=== PATIENT | female | born 1980 | race Caucasian/White ===

== ENCOUNTER 2017-03-27 15:22 | Emergency (ER) | payer MEDICAID, OTHER ==
[2017-03-27] MEDS ORDERED: HYDROXYZINE PAMOATE 50 MG CAPSULE PO ONE (16:04)
--- NOTE | 2017-03-27 16:11 | ER Document Report ---
ED General - General Chief Complaint: Hyperventilation Stated Complaint: DIFFICULTY BREATHING Time Seen by Provider: 03/27/17 15:44 Notes: Patient says she awakened this morning and felt a knot in the left anterior neck. It was painful to swallow and she was having difficulty swallowing even water. Later in the morning, she had to take her daughter to school. Then she went by her psychiatrist office and got a prescription for a new antidepressant medication. She also takes Valium 5 mg as needed for anxiety. Suffers from panic attacks. About 1:45 PM this afternoon, patient was driving to work when she began to feel her chest tightening and that she was having a hard time breathing. She stopped at a local fire and rescue department where they gave her 1 of her own Valium to take. EMS was called and they transported the patient here. They were concerned that she had wheezing in her chest and gave her 125 mg of Solu-Medrol IV. When she arrived here, patient is complaining of tightening in her chest and intermittent difficulty breathing. Patient also complains of having episodes of her heart rate increasing. She underwent cardiac ablation therapy in December 2000 which was successful for a few years, but now she is beginning to have episodes of tachycardia again. Patient says that she suffers chronically from dry mouth and dry throat, but was told by her doctor it was due to acid reflux. TRAVEL OUTSIDE OF THE [place] IN LAST 30 DAYS: No - Related Data Allergies/Adverse Reactions: aspirin [Aspirin] Allergy (Severe, Verified 11/15/14 08:38) ? apples Allergy (Severe, Uncoded 11/15/14 08:38) Generalized Itching Past Medical History - Social History Smoking Status: Unknown if Ever Smoked Family History: Reviewed & Not Pertinent - Past Medical History Cardiac Medical History: Denies: Hx Coronary Artery Disease, Hx Heart Attack, Hx Hypertension Pulmonary Medical History: Denies: Hx Asthma, Hx Bronchitis, Hx COPD, Hx Pneumonia Neurological Medical History: Reports: Hx Migraine. Denies: Hx Cerebrovascular Accident, Hx Seizures GI Medical History: Reports: Hx Gastroesophageal Reflux Disease Musculoskeltal Medical History: Denies Hx Arthritis Psychiatric Medical History: Reports: Hx Anxiety, Hx Depression, Other - Panic attacks Past Surgical History: Reports: Hx Cardiac Catheterization, Hx Cardiac Surgery - Accessory pathway ablation, Hx Cholecystectomy, Hx Tubal Ligation - Immunizations Immunizations up to date: Yes Hx Diphtheria, Pertussis, Tetanus Vaccination: Yes Review of Systems - Review of Systems Notes: REVIEW OF SYSTEMS: CONSTITUTIONAL : Denies fever. EENT: Denies eye, ear, nose or mouth or throat pain or other symptoms. See HPI regarding "knot" in left neck. CARDIOVASCULAR: See HPI. RESPIRATORY: Denies cough, chest congestion, but does feel difficulty breathing and shortness of breath. GASTROINTESTINAL: Denies abdominal pain or nausea, vomiting, or diarrhea. GENITOURINARY: Denies difficulty or painful urinating, urinary frequency, blood in urine. MUSCULOSKELETAL: Denies back or neck pain. Denies joint pain or swelling. SKIN: Denies rash or skin lesions. NEUROLOGICAL: Denies LOC or altered mental status. Denies headache. Denies sensory loss or motor deficits. Psych: Has anxiety and panic attacks and depression. ALL OTHER SYSTEMS REVIEWED AND NEGATIVE. Physical Exam - Vital signs Vitals: Resp 32 H 03/27/17 15:23 Interpretation: Tachycardic - Heart rates about 105 to 110, but varies somewhat above and below that rate. - Notes Notes: PHYSICAL EXAMINATION: GENERAL: Rather hysterical and tearful and complaining of her chest hurting and also difficulty breathing. Voice is normal. HEAD: Atraumatic, normocephalic. EYES: Pupils equal round and reactive to light, extraocular movements intact. ENT: oropharynx clear without exudates. Moist mucous membranes. No swelling anywhere in the oropharynx. NECK: Normal range of motion, supple. Palpation of the neck does reveal what feels like about a 1 cm tender likely lymph node about the mid left sternocleidomastoid muscle. It is tender to my touch. Definitely no fluctuance. No abscess. LUNGS: Breath sounds clear and equal bilaterally. HEART: Regular rate and rhythm without murmurs. ABDOMEN: Soft, nontender. No guarding or rebound. BACK: No tenderness throughout entire back. EXTREMITIES: Normal range of motion without pain. Negative Homans bilaterally. NEUROLOGICAL: Normal speech, normal gait. Normal sensory, motor, and reflex exams. Awake, alert, and oriented x3. Cranial nerves normal. PSYCH: Normal mood, normal affect. SKIN: Warm, dry, no rashes. Course - Vital Signs Vital signs: Temp Pulse Resp BP Pulse Ox 11 L 121/74 98 03/27/17 19:01 03/27/17 19:01 03/27/17 19:01 - Laboratory Result Diagrams: 03/27/17 15:30 03/27/17 15:30 Laboratory results interpreted by me: 03/27/17 15:30 Carbon Dioxide 17 L Discharge - Discharge Clinical Impression: Panic attack, Sinus tachycardia Disposition: HOME, SELF-CARE Additional Instructions: Panic Attack The cause of panic attacks is unknown. Symptoms can include chest pain, shortness of breath, palpitations, sweats, and a sense of smothering or impending doom. In time, the panic attacks can lead to generalized anxiety and phobias. Because the symptoms can mimic heart attack, pulmonary embolism, and other serious diseases, the physician has evaluated you for these conditions. There is no evidence of a serious problem. An acute panic attack usually goes away by itself without treatment. A severe attack can be treated with medicine to calm you. Long-term, antidepressant medicines may help prevent attacks. Counselling can also be very beneficial in dealing with panic attacks. Panic attacks are less likely if you are getting regular exercise, proper diet, and plenty of sleep. It's normal for panic attacks to cause many frightening symptoms. However, you should call or return if your symptoms change significantly or if you are worsening. Anxiety The physician feels that some of your health problems are being caused by anxiety. Anxiety affects your health in many ways. Anxiety alone can cause palpitations, sweats, chest pains, abdominal pains, shortness of breath, and headaches. It contributes to ulcer disease, high blood pressure, irritable bowel syndrome, and has been shown to cause flare-ups of many other diseases. Anxiety is not a simple disorder to treat. If the anxiety is due to recent life stresses, you may simply need time to "work through" the changes. If the anxiety is due to an underlying unhappiness with yourself or due to psychiatric disturbance, professional help will be needed. Your physician can refer you for further help if needed. Anti-anxiety medication is occasionally given if the stress is acute or if you are having trouble sleeping. Chronic or frequent use of these medications is not a good idea because the body becomes reliant on it, preventing you from dealing with life's normal stresses. Sinus Tachycardia The palpitations (racing heart) you have felt are due to "sinus tachycardia." This is a rapid (but NORMAL) rhythm which can be due to fever, pain, anxiety, lack of sleep, over-exertion, or drugs. Cold medications, caffeine, and diet pills are particularly likely to cause tachycardia. The doctor has found no evidence of heart disease. Occasionally, medication is required for uncomfortable palpitations. Usually, however, all that is required is rest, reassurance, and avoiding caffeine, alcohol, nicotine , and unnecessary medicines. Call the doctor if you develop any new or unusual symptoms, or if the rapid heartbeat does not resolve. NORMAL EXAM AND WORKUP: At this time, except for your somewhat elevated heart rate, your examination and workup show no significant abnormality. No significant abnormal physical findings were noted. All laboratory, EKG, and imaging (x-ray , CT scans, ultrasound) studies that were ordered show no significant abnormality. Although your examination and all studies that were ordered showed no significant abnormal finding, there are no examinations and no studies that are 100% accurate. There is always the possibility that some abnormality could exist and not be detected with physical examination or within the limits and capabilities of laboratory and other studies. You should return or follow up as you were instructed on your visit today for further evaluation if your symptoms do not resolve. Valium is a benzodiazepines You have been given a benzodiazepine medication. Examples of this type of medicine include Valium, Xanax, Librium, Ativan, and Halcion. Benzodiazepines have many uses. Medications of this type are used for insomnia, anxiety, muscle spasms, seizures, and drug and alcohol withdrawal. You may become very drowsy when you first take the medication. You should not drive or operate machinery while under its effects. Do not combine the medication with alcohol, or with any other medication without talking to your doctor. Do not take if without specific instruction from your gyn. Some benzodiazepines may have harmful interactions with oral antifungal medicines such as ketoconazole, itraconazole, and nefazodone. If you are taking an antifungal medicine, discuss this with your doctor before taking benzodiazepines. FOLLOW-UP CARE: If you have been referred to a physician for follow-up care, call the physician s office for an appointment as you were instructed or within the next two days. If you experience worsening or a significant change in your symptoms, notify the physician immediately or return to the Emergency Department at any time for re-evaluation. Follow-up with your primary care provider and begin the process of getting back involved with a financial aid officer to assess your heart condition and rapid heartbeat. Forms: Return to Work
[2017-03-27 16:30] LABS: ABSOLUTE LYMPHOCYTES (AUTO) 2.2 10^3/uL (0.5-4.7); ABSOLUTE MONOCYTES (AUTO) 0.5 10^3/uL (0.1-1.4); ABSOLUTE NEUT (AUTO) 3.5 10^3/uL (1.7-8.2); BASOPHILS % (AUTO) 0.4 % (0-2); EOSINOPHILS % (AUTO) 0.8 % (0-6); HEMOGLOBIN 12.9 g/dL (12.0-15.5); HGB HCT DIFFERENCE 0.7; LYMPHOCYTES % (AUTO) 34.9 % (13-45); MEAN CORPUSCULAR HEMOGLOBIN 31.7 pg (27.0-33.4); MEAN CORPUSCULAR VOLUME 93 fl (80-97); MONOCYTES % (AUTO) 8.5 % (3-13); RED BLOOD COUNT 4.07 10^6/uL (3.72-5.28); RED CELL DISTRIBUTION WIDTH 13.4 % (11.5-14.0); SEGMENTED NEUTROPHILS % (AUTO) 55.4 % (42-78); WHITE BLOOD COUNT 6.4 10^3/uL (4.0-10.5)
[2017-03-27 16:36] LABS: ALANINE AMINOTRANSFERASE 20 U/L (9-52); ALBUMIN 4.3 g/dL (3.5-5.0); ALKALINE PHOSPHATASE 56 U/L (38-126); ANION GAP 19 (5-19); ASPARTATE AMINO TRANSFERASE 30 U/L (14-36); BILIRUBIN,DIRECT 0.3 mg/dL (0.0-0.4); BILIRUBIN,TOTAL 0.4 mg/dL (0.2-1.3); BLOOD UREA NITROGEN 8 mg/dL (7-20); CARBON DIOXIDE 17 mmol/L (22-30); CHLORIDE 107 mmol/L (98-107); CREATININE RESULT 0.71 mg/dL (0.52-1.25); GLUCOSE 104 mg/dL (75-110); POTASSIUM 3.7 mmol/L (3.6-5.0); SODIUM 143.1 mmol/L (137-145); TOTAL PROTEIN 7.4 g/dL (6.3-8.2)
[2017-03-27 16:48] LABS: CREATINE KINASE MB 0.43 ng/mL (<4.55)
[2017-03-27 16:49] LABS: TROPONIN I < 0.012 ng/mL
[2017-03-27 17:07] LABS: THYROID STIMULATING HORMONE 2.94 uIU/mL (0.47-4.68)
--- NOTE | 2017-03-27 18:48 | EKG REPORT ---
SEVERITY:- ABNORMAL ECG - SINUS TACHYCARDIA NONSPECIFIC T ABNORMALITIES, INFERIOR LEADS : Confirmed by: Edin Bonner MD 27-Mar-2017 18:46:46
[2017-03-27 19:01] LABS: APPEARANCE,URINE CLEAR; BILIRUBIN,URINE NEGATIVE (NEGATIVE); GLUCOSE, URINE NEGATIVE (NEGATIVE); KETONES,URINE NEGATIVE (NEGATIVE); LEUKOCYTE ESTERASE,URINE NEGATIVE (NEGATIVE); NITRITE,URINE NEGATIVE (NEGATIVE); PROTEIN,URINE NEGATIVE (NEGATIVE); URINE SPECIFIC GRAVITY 1.002; UROBILINOGEN,URINE NEGATIVE mg/dL (<2.0)
[2017-03-27 19:13] LABS: URINE BARBITURATES SCREEN NEGATIVE; URINE METHADONE SCREEN NEGATIVE; URINE OPIATES LOW NEGATIVE; URINE PHENCYCLIDINE SCREEN NEGATIVE
[2017-03-27 19:15] VITALS: BP 121/74
== END 2017-03-27 19:40 | disposition home or self-care (01) ==
LOC: ER 15:22
DX: F41.0 Panic disorder [episodic paroxysmal anxiety] (principal); R00.0 Tachycardia, unspecified; R06.4 Hyperventilation; R06.02 Shortness of breath; Z79.899 Other long term (current) drug therapy
CPT/HCPCS: 93005; 99285; 36415; 87070; 84439; 82553; 87880; 84443; 84703; 85025; 80053; 81001; 84484; 80307; 85379; 93010; J3490

== ENCOUNTER 2018-06-08 00:59 | Emergency (ER) | payer MEDICAID, OTHER ==
[2018-06-08] MEDS ORDERED: ASPIRIN 81 MG TABLET, CHEWABLE PO ONE (01:11)
[2018-06-08] MEDS ORDERED: ONDANSETRON HCL INJ/PF 4 MG/2 ML SDV IV ONE ×2 (01:27→04:24)
[2018-06-08] MEDS ORDERED: NORMAL SALINE 1000 ML 1,000 ML IV ONE (01:27)
[2018-06-08] MEDS ORDERED: ACETAMINOPHEN 325 MG TABLET PO ONE (01:27)
[2018-06-08 01:30] LABS: ABSOLUTE BASOPHILS # (AUTO) 0.1 10^3/uL (0.0-0.2); ABSOLUTE MONOCYTES (AUTO) 0.6 10^3/uL (0.1-1.4); ABSOLUTE NEUT (AUTO) 7.6 10^3/uL (1.7-8.2); BASOPHILS % (AUTO) 0.8 % (0-2); EOSINOPHILS % (AUTO) 0.2 % (0-6); HEMATOCRIT 36.6 % (36.0-47.0); HEMOGLOBIN 12.8 g/dL (12.0-15.5); LYMPHOCYTES % (AUTO) 19.5 % (13-45); MEAN CORPUSCULAR HEMOGLOBIN 31.6 pg (27.0-33.4); MEAN CORPUSCULAR VOLUME 90 fl (80-97); PLATELET COUNT 353 10^3/uL (150-450); RED BLOOD COUNT 4.05 10^6/uL (3.72-5.28); RED CELL DISTRIBUTION WIDTH 13.6 % (11.5-14.0); SEGMENTED NEUTROPHILS % (AUTO) 73.5 % (42-78); TOTAL CELLS COUNTED % (AUTO) 100 %; WHITE BLOOD COUNT 10.4 10^3/uL (4.0-10.5)
--- NOTE | 2018-06-08 01:38 | ER Document Report ---
ED General - General Mode of Arrival: Ambulatory Information source: Patient TRAVEL OUTSIDE OF THE [place] IN LAST 30 DAYS: No <STEVEN JIMENEZ - Last Filed: 06/08/18 02:51> <HALLIE VERDE - Last Filed: 06/08/18 04:55> - General Chief Complaint: Palpitations Stated Complaint: HEADACHE,LEFT ARM PAIN Time Seen by Provider: 06/08/18 01:09 Notes: Patient is a 37 year old female with a history of a cardiac ablation(2000), gastroparesis, migraines, anxiety presents to the emergency department complaining of heart palpations onset yesterday. Patient states she began to have heart palpitations while laying down yesterday evening. She states she used a pulse ox and recorded a heart rate of 150 bpm. She states she also developed a headache, nausea, left sided chest pain, a temperature of 100.1 and left arm pain. Patient states "I just don't feel right" and further mentions having similar symptoms in 2000 which led to an ablation. Patient states she does not intake caffeine regularly but had some yesterday. She mentions having episodes of diarrhea this week. She denies any cough or shortness of breath. Patient mentions a family history of thyroid problems and malignancy. (STEVEN JIMENEZ) - Related Data Allergies/Adverse Reactions: aspirin [Aspirin] Allergy (Severe, Verified 06/08/18 01:05) ? apples Allergy (Severe, Uncoded 06/08/18 01:05) Generalized Itching Past Medical History - General Information source: Patient - Social History Smoking Status: Former Smoker Frequency of alcohol use: None Drug Abuse: None Family History: Malignancy, Thyroid Disfunction Patient has suicidal ideation: No Patient has homicidal ideation: No Neurological Medical History: Reports: Hx Migraine GI Medical History: Reports: Hx Gastroesophageal Reflux Disease Psychiatric Medical History: Reports: Hx Anxiety, Hx Depression Past Surgical History: Reports: Hx Cardiac Catheterization, Hx Cardiac Surgery - Accessory pathway ablation, Hx Cholecystectomy, Hx Tubal Ligation - Immunizations Immunizations up to date: Yes Hx Diphtheria, Pertussis, Tetanus Vaccination: Yes <STEVEN JIMENEZ - Last Filed: 06/08/18 02:51> Review of Systems - Review of Systems Constitutional: See HPI, Fever EENT: No symptoms reported Cardiovascular: See HPI, Chest pain, Palpitations Respiratory: No symptoms reported Gastrointestinal: See HPI, Nausea Genitourinary: No symptoms reported Female Genitourinary: No symptoms reported Musculoskeletal: See HPI Skin: No symptoms reported Hematologic/Lymphatic: No symptoms reported Neurological/Psychological: See HPI, Headaches <STEVEN JIMENEZ - Last Filed: 06/08/18 02:51> Physical Exam <STEVEN JIMENEZ - Last Filed: 06/08/18 02:51> <HALLIE VERDE - Last Filed: 06/08/18 04:55> - Vital signs Vitals: Temp Pulse Resp BP Pulse Ox 98.1 F 108 H 20 127/77 H 96 06/08/18 01:03 06/08/18 01:03 06/08/18 01:03 06/08/18 01:03 06/08/18 01:03 - Notes Notes: GENERAL: Alert, interacts well. No acute distress. HEAD: Normocephalic, atraumatic. EYES: Pupils equal, round, and reactive to light. Extraocular movements intact. ENT: Oral mucosa moist, tongue midline. NECK: Full range of motion. Supple. Trachea midline. LUNGS: Clear to auscultation bilaterally, no wheezes, rales, or rhonchi. No respiratory distress. HEART: Regular rate and rhythm. No murmurs, gallops, or rubs. ABDOMEN: Soft, non-tender. Non-distended. Bowel sounds present in all 4 quadrants. EXTREMITIES: Moves all 4 extremities spontaneously. No edema, radial and dorsalis pedis pulses 2/4 bilaterally. No cyanosis. NEUROLOGICAL: Alert and oriented x3. Normal speech. . PSYCH: Somewhat anxious. SKIN: Warm, normal turgor. Mildly diaphoretic on the upper lip. No rashes or lesions noted. (STEVEN JIMENEZ) Course - Laboratory Result Diagrams: 06/08/18 01:15 06/08/18 01:15 <STEVEN JIMENEZ - Last Filed: 06/08/18 02:51> - Laboratory Result Diagrams: 06/08/18 01:15 06/08/18 01:15 <HALLIE VERDE - Last Filed: 06/08/18 04:55> - Re-evaluation Re-evalutation: 06/08/18 04:25 CBC unremarkable, CMP grossly unremarkable, cardiac enzymes negative x2, lipase normal, TSH, T3 and T4 all normal, hCG negative, alcohol level is less than 10, chest x-ray shows no acute process. Patient has not had a recurrence of significant tachycardia while in the emergency department. 06/08/18 04:26 06/08/18 04:35 Declines GI cocktail, agreeable to discharge as I see no indication of infection or heart attack. Will follow up with Dr. Cervantes on Saturday for Holter monitor. (HALLIE VERDE) - Vital Signs Vital signs: Temp Pulse Resp BP Pulse Ox 98 F 95 17 104/73 99 06/08/18 04:09 06/08/18 04:09 06/08/18 04:09 06/08/18 04:09 06/08/18 04:09 - Laboratory Laboratory results interpreted by me: 06/08/18 01:15 Chloride 109 H Glucose 113 H - EKG Interpretation by Me Additional EKG results interpreted by me: 06/08/18 04:27 Initial EKG at 110 shows sinus tachycardia at a rate of 101, normal axis, normal intervals, no ST segment elevations or depressions, there are T wave inversions noted in lead III, aVF, V3 and 4, T wave flattening in V5 and V6, although this is unchanged from prior EKG on 03/27/2017 per my interpretation. Repeat EKG at 3:42 AM shows sinus rhythm at a rate of 76, normal axis, normal intervals, no ST segment elevations or depressions, unchanged T wave inversions in lead III, aVF, V3 and V4, T waves have normalized in V5 and V6 per my interpretation. (HALLIE VERDE) Discharge <STEVEN JIMENEZ - Last Filed: 06/08/18 02:51> <HALLIE VERDE - Last Filed: 06/08/18 04:55> - Discharge Clinical Impression: Palpitation, Chest pain with low risk of acute coronary syndrome Condition: Stable Disposition: HOME, SELF-CARE Additional Instructions: Today your workup did not show any signs of hyper or hypothyroidism, heart attack or electrolyte abnormality. These are all good things. It is very important that you follow-up with a mold loft worker as an outpatient. Please make sure that you call Dr. Cervantes's office first thing Saturday morning. He will get you in for an appointment to have a Holter monitor to track your palpitations. It is possible that she may end up needing another ablation. Please return to the emergency department at any time should your rapid heartbeat return or should your chest pain worsen. Forms: Return to Work Referrals: CEDRIC CERVANTES MD [ACTIVE STAFF] - Follow up as needed Scribe Attestation: 06/08/18 04:55 I personally performed the services described in the documentation, reviewed and edited the documentation which was dictated to the scribe in my presence, and it accurately records my words and actions. (HALLIE VERDE) Scribe Documentation - Scribe Written by Scribe:: Robert Mello, 06/08/2018 01:48 acting as scribe for :: Dylan <STEVEN JIMENEZ - Last Filed: 06/08/18 02:51>
[2018-06-08 01:42] LABS: ALANINE AMINOTRANSFERASE 14 U/L (9-52); ALBUMIN 4.3 g/dL (3.5-5.0); ALKALINE PHOSPHATASE 56 U/L (38-126); ANION GAP 13 (5-19); ASPARTATE AMINO TRANSFERASE 30 U/L (14-36); BILIRUBIN,DIRECT 0.2 mg/dL (0.0-0.4); BILIRUBIN,TOTAL 0.2 mg/dL (0.2-1.3); BLOOD UREA NITROGEN 9 mg/dL (7-20); CALCIUM 9.4 mg/dL (8.4-10.2); CARBON DIOXIDE 23 mmol/L (22-30); CHLORIDE 109 mmol/L (98-107); CREATINE KINASE 59 U/L (30-135); GLUCOSE 113 mg/dL (75-110); POTASSIUM 4.2 mmol/L (3.6-5.0); TOTAL PROTEIN 7.5 g/dL (6.3-8.2)
[2018-06-08 01:54] LABS: CREATINE KINASE MB 0.37 ng/mL (<4.55); TROPONIN I < 0.012 ng/mL
--- NOTE | 2018-06-08 02:08 | RADIOLOGY REPORT (SQ) ---
EXAM DESCRIPTION: XR CHEST 1 VIEW COMPLETED DATE/TME: 06/08/2018 01:11 CLINICAL HISTORY: 37 years, Female, palpitations COMPARISON: [id number] chest x-ray NUMBER OF VIEWS: 1 TECHNIQUE: Frontal view the chest LIMITATIONS: None. FINDINGS: Heart size is normal. . Lungs are clear. No pneumothorax IMPRESSION: Negative chest copyright 2010 [facility] [employer]- All Rights Reserved
[2018-06-08 02:11] LABS: FREE T3 4.01 pg/mL (2.77-5.27); FREE T4 (FREE THYROXINE) 1.35 ng/dL (0.78-2.19)
[2018-06-08 02:25] LABS: THYROID STIMULATING HORMONE 1.6 uIU/mL (0.47-4.68)
[2018-06-08] MEDS ORDERED: KETOROLAC TROMETHAMINE 60 MG/2 ML SDV IV ONE (02:38)
[2018-06-08 04:11] VITALS: BP 104/73
[2018-06-08] MEDS ORDERED: METOCLOPRAMIDE HCL ORAL SOLN 10 MG/10 ML UDCUP PO ONE (04:24)
[2018-06-08] MEDS ORDERED: MAG HYDROX/AL HYDROX/SIMETH SUSP 30 ML UDCUP PO ONE (04:24)
[2018-06-08] MEDS ORDERED: LIDOCAINE 2% VISCOUS SOLN 20 ML UDCUP PO ONE (04:24)
--- NOTE | 2018-06-08 08:08 | EKG REPORT ---
SEVERITY:- NORMAL ECG - SINUS RHYTHM NONSPECIFIC ST-T CHANGES- INFERIOR LEADS : Confirmed by: Edin Bonner MD 08-Jun-2018 08:07:25
--- NOTE | 2018-06-08 08:09 | EKG REPORT ---
SEVERITY:- ABNORMAL ECG - SINUS TACHYCARDIA NONSPECIFIC T ABNORMALITIES, INFERIOR LEADS : Confirmed by: Edin Bonner MD 08-Jun-2018 08:08:09
== END 2018-06-08 04:54 | disposition home or self-care (01) ==
LOC: ER 00:59
DX: R00.2 Palpitations (principal); R07.9 Chest pain, unspecified; R51 Headache; R50.9 Fever, unspecified; Z88.6 Allergy status to analgesic agent; Z90.49 Acquired absence of other specified parts of digestive tract; Z98.51 Tubal ligation status
CPT/HCPCS: 93005; 96376; 99285; 96361; 96374; 96375; 36415; 84439; 82553; 80307; 82550; 83690; 84443; 84703; 85025; 80053; 84484; 84481; 71045; 93010; J1885; J2405; J7030

== ENCOUNTER 2018-09-16 20:31 | Emergency (ER) | payer SELFPAY ==
[2018-09-16] MEDS ORDERED: ONDANSETRON HCL INJ/PF 4 MG/2 ML SDV IV ONE (22:30)
[2018-09-16] MEDS ORDERED: RINGERS SOLUTION,LACTATED 1,000 ML IV ONE (22:30)
--- NOTE | 2018-09-16 22:32 | ER Document Report ---
ED Medical Screen (RME) - General Chief Complaint: Nausea/Vomiting Stated Complaint: NAUSEA,VOMITING Time Seen by Provider: 09/16/18 22:28 Notes: Patient is a 38-year-old female presents to the emergency department for intermittent abdominal pain, nausea, vomiting for the last couple of weeks. Patient states she does not have any abdominal pain at this time but is nauseous. Patient states she also had one episode of diarrhea this morning. Patient is denying any fevers. Patient states she has had a tubal ligation but "feels as though I am ." Past medical history cholecystectomy GENERAL: Alert, interacts well. No acute distress. ABDOMEN: Soft, non-tender. Non-distended. Bowel sounds present in all 4 quadrants. No McBurney's point tenderness, no Chadwick sign noted SKIN: Warm, dry, normal turgor. No rashes or lesions noted. I have greeted and performed a rapid initial assessment of this patient. A comprehensive ED assessment and evaluation of the patient, analysis of test results and completion of the medical decision making process will be conducted by additional ED providers. TRAVEL OUTSIDE OF THE [place] IN LAST 30 DAYS: No - Related Data Allergies/Adverse Reactions: aspirin [Aspirin] Allergy (Severe, Verified 06/08/18 01:05) ? apples Allergy (Severe, Uncoded 06/08/18 01:05) Generalized Itching Past Medical History - Social History Frequency of alcohol use: None Drug Abuse: Marijuana - Past Medical History Cardiac Medical History: Denies: Hx Coronary Artery Disease, Hx Heart Attack, Hx Hypertension Pulmonary Medical History: Denies: Hx Asthma, Hx Bronchitis, Hx COPD, Hx Pneumonia Neurological Medical History: Reports: Hx Migraine. Denies: Hx Cerebrovascular Accident, Hx Seizures Renal/ Medical History: Denies: Hx Peritoneal Dialysis GI Medical History: Reports: Hx Gastroesophageal Reflux Disease Musculoskeltal Medical History: Denies Hx Arthritis Psychiatric Medical History: Reports: Hx Anxiety, Hx Depression Past Surgical History: Reports: Hx Cardiac Catheterization, Hx Cardiac Surgery - Accessory pathway ablation, Hx Cholecystectomy, Hx Tubal Ligation - Immunizations Immunizations up to date: Yes Hx Diphtheria, Pertussis, Tetanus Vaccination: Yes Physical Exam - Vital signs Vitals: Temp Pulse Resp BP Pulse Ox 98.7 F 93 16 126/82 H 100 09/16/18 21:02 09/16/18 21:02 09/16/18 21:02 09/16/18 21:02 09/16/18 21:02 Course - Vital Signs Vital signs: Temp Pulse Resp BP Pulse Ox 98.7 F 93 16 126/82 H 100 09/16/18 21:02 09/16/18 21:02 09/16/18 21:02 09/16/18 21:02 09/16/18 21:02
[2018-09-16 22:39] LABS: APPEARANCE,URINE CLEAR; BILIRUBIN,URINE NEGATIVE (NEGATIVE); COLOR,URINE STRAW; GLUCOSE, URINE NEGATIVE (NEGATIVE); KETONES,URINE NEGATIVE (NEGATIVE); LEUKOCYTE ESTERASE,URINE NEGATIVE (NEGATIVE); NITRITE,URINE NEGATIVE (NEGATIVE); PROTEIN,URINE NEGATIVE (NEGATIVE); URINE SPECIFIC GRAVITY 1.006; UROBILINOGEN,URINE NEGATIVE mg/dL (<2.0)
[2018-09-16 23:03] LABS: ABSOLUTE EOSINOPHILS # (AUTO) 0.1 10^3/uL (0.0-0.6); ABSOLUTE LYMPHOCYTES (AUTO) 3.1 10^3/uL (0.5-4.7); ABSOLUTE MONOCYTES (AUTO) 0.5 10^3/uL (0.1-1.4); ABSOLUTE NEUT (AUTO) 4.2 10^3/uL (1.7-8.2); BASOPHILS % (AUTO) 0.4 % (0-2); EOSINOPHILS % (AUTO) 1.2 % (0-6); HEMATOCRIT 37.2 % (36.0-47.0); HEMOGLOBIN 12.6 g/dL (12.0-15.5); LYMPHOCYTES % (AUTO) 39.1 % (13-45); MEAN CORPUSCULAR HEMOGLOBIN 30.8 pg (27.0-33.4); MEAN CORPUSCULAR VOLUME 91 fl (80-97); MONOCYTES % (AUTO) 6.6 % (3-13); PLATELET COUNT 395 10^3/uL (150-450); RED BLOOD COUNT 4.11 10^6/uL (3.72-5.28); RED CELL DISTRIBUTION WIDTH 13.8 % (11.5-14.0); SEGMENTED NEUTROPHILS % (AUTO) 52.7 % (42-78); TOTAL CELLS COUNTED % (AUTO) 100 %
[2018-09-16 23:29] LABS: ALANINE AMINOTRANSFERASE 24 U/L (9-52); ALBUMIN 4.5 g/dL (3.5-5.0); ALKALINE PHOSPHATASE 57 U/L (38-126); ANION GAP 10 (5-19); ASPARTATE AMINO TRANSFERASE 34 U/L (14-36); BILIRUBIN,DIRECT 0.1 mg/dL (0.0-0.4); BILIRUBIN,TOTAL 0.4 mg/dL (0.2-1.3); BLOOD UREA NITROGEN 10 mg/dL (7-20); CALCIUM 9.5 mg/dL (8.4-10.2); CARBON DIOXIDE 25 mmol/L (22-30); CHLORIDE 104 mmol/L (98-107); GLUCOSE 93 mg/dL (75-110); LIPASE 127.7 U/L (23-300); POTASSIUM 3.7 mmol/L (3.6-5.0); SODIUM 139.2 mmol/L (137-145); TOTAL PROTEIN 7.8 g/dL (6.3-8.2)
--- NOTE | 2018-09-17 01:38 | ER Document Report ---
ED General - General Chief Complaint: Nausea/Vomiting Stated Complaint: NAUSEA,VOMITING Time Seen by Provider: 09/16/18 22:28 Notes: Patient is a 38-year-old female presents to the emergency department for intermittent abdominal pain, nausea, vomiting for the last couple of weeks. Patient states she does not have any abdominal pain at this time but is nauseous. Patient states she also had one episode of diarrhea this morning. Patient is denying any fevers. Patient states she has had a tubal ligation but "feels as though I am ." Patient is denying dysuria or vaginal discharge Past medical history cholecystectomy TRAVEL OUTSIDE OF THE [place] IN LAST 30 DAYS: No - Related Data Allergies/Adverse Reactions: aspirin [Aspirin] Allergy (Severe, Verified 06/08/18 01:05) ? apples Allergy (Severe, Uncoded 06/08/18 01:05) Generalized Itching Past Medical History - General Information source: Patient - Social History Smoking Status: Former Smoker Frequency of alcohol use: None Drug Abuse: Marijuana Family History: Reviewed & Not Pertinent Patient has suicidal ideation: No Patient has homicidal ideation: No - Past Medical History Cardiac Medical History: Denies: Hx Coronary Artery Disease, Hx Heart Attack, Hx Hypertension Pulmonary Medical History: Denies: Hx Asthma, Hx Bronchitis, Hx COPD, Hx Pneumonia Neurological Medical History: Reports: Hx Migraine. Denies: Hx Cerebrovascular Accident, Hx Seizures Renal/ Medical History: Denies: Hx Peritoneal Dialysis GI Medical History: Reports: Hx Gastroesophageal Reflux Disease Musculoskeletal Medical History: Denies Hx Arthritis Psychiatric Medical History: Reports: Hx Anxiety, Hx Depression Past Surgical History: Reports: Hx Cardiac Catheterization, Hx Cardiac Surgery - Accessory pathway ablation, Hx Cholecystectomy, Hx Tubal Ligation - Immunizations Immunizations up to date: Yes Hx Diphtheria, Pertussis, Tetanus Vaccination: Yes Review of Systems - Review of Systems Constitutional: No symptoms reported EENT: No symptoms reported Cardiovascular: No symptoms reported Respiratory: No symptoms reported Gastrointestinal: See HPI Genitourinary: No symptoms reported Female Genitourinary: No symptoms reported Musculoskeletal: No symptoms reported Skin: No symptoms reported Hematologic/Lymphatic: No symptoms reported Neurological/Psychological: No symptoms reported Physical Exam - Vital signs Vitals: Temp Pulse Resp BP Pulse Ox 98.7 F 93 16 126/82 H 100 09/16/18 21:02 09/16/18 21:02 09/16/18 21:02 09/16/18 21:02 09/16/18 21:02 - Notes Notes: GENERAL: Alert, interacts well. No acute distress. HEAD: Normocephalic, atraumatic. EYES: Pupils equal, round, and reactive to light. Extraocular movements intact. ENT: Oral mucosa moist, tongue midline. NECK: Full range of motion. Supple. Trachea midline. LUNGS: Clear to auscultation bilaterally, no wheezes, rales, or rhonchi. No respiratory distress. HEART: Regular rate and rhythm. No murmur ABDOMEN: Soft, non-tender. Non-distended. Bowel sounds present in all 4 quadrants. No McBurney's point tenderness, no Chadwick sign noted. No bilateral pelvic pain, no suprapubic pain noted EXTREMITIES: Moves all 4 extremities spontaneously. No edema, normal radial and dorsalis pedis pulses bilaterally. No cyanosis. BACK: no cervical, thoracic, lumbar midline tenderness. No saddle anesthesia, normal distal neurovascular exam. No CVA tenderness noted bilaterally NEUROLOGICAL: Alert and oriented x3. Normal speech. cranial nerves II through XII grossly intact. PSYCH: Normal affect, normal mood. SKIN: Warm, dry, normal turgor. No rashes or lesions noted. Course - Re-evaluation Re-evalutation: 09/17/18 01:36 Patient continues to deny any abdominal pain. States after Zofran administration she no longer feels nauseated. States she was able to drink fluids in the emergency room. Patient is denying any trauma or injury to her head any dizziness, weakness. Patient's CBC is within normal limits, CMP within normal limits, urine shows no signs of infection, hCG negative. Discussed close follow-up with [facility] as patient does not have insurance. Return precautions discussed. Patient stable for discharge. - Vital Signs Vital signs: Temp Pulse Resp BP Pulse Ox 98.7 F 93 16 126/82 H 100 09/16/18 21:02 09/16/18 21:02 09/16/18 21:02 09/16/18 21:02 09/16/18 21:02 - Laboratory Result Diagrams: 09/16/18 22:55 09/16/18 22:55 Laboratory results interpreted by me: 09/16/18 21:03 Urine Blood SMALL H Discharge - Discharge Clinical Impression: Nausea Condition: Stable Disposition: HOME, SELF-CARE Instructions: Nausea or Vomiting, Nonspecific ([facility]) Additional Instructions: As we discussed you have been seen and treated in the emergency department for your generalized nausea. Your labs are completely unremarkable your urine shows no signs of infection and you are not . I have given you a prescription for nausea medication. Please use as prescribed and immediately r eturn to the emergency room should you have any other concerning symptoms. I have also provided you with phone numbers for [facility]. This is a clinic you can go to if you do not have insurance to see a doctor. Please follow-up there. Prescriptions: Ondansetron [Zofran Odt 4 mg Tablet] 1 - 2 tab PO Q6 #10 tab.rapdis Forms: Return to Work
[2018-09-17 01:53] VITALS: BP 109/55
== END 2018-09-17 01:52 | disposition home or self-care (01) ==
LOC: ER 20:31
DX: R11.2 Nausea with vomiting, unspecified (principal); R10.9 Unspecified abdominal pain; R19.7 Diarrhea, unspecified; Z87.891 Personal history of nicotine dependence
CPT/HCPCS: 99284; 96361; 96374; 36415; 87086; 83690; 85025; 81025; 80053; 81001; J2405; J7120

== ENCOUNTER 2020-03-06 17:24 | Emergency (ER) | payer SELFPAY ==
--- NOTE | 2020-03-06 17:53 | ER Document Report ---
ED Medical Screen (RME) - General Chief Complaint: Chest Pain Stated Complaint: CHEST PAIN Time Seen by Provider: 03/06/20 17:49 Information source: Patient Notes: Patient presents complaining of heart palpitations in which she says her heart rate is been as high as 200 yesterday. Patient reports heart rate of 150 today. Patient reports headache and dizziness. Patient reports vomiting a few days ago but none since then. Patient states she has had episodes with tachycardia in the past. I have greeted and performed a rapid initial assessment of this patient. A comprehensive ED assessment and evaluation of the patient, analysis of test results and completion of the medical decision making process will be conducted by additional ED providers. TRAVEL OUTSIDE OF THE [place] IN LAST 30 DAYS: No - Related Data Allergies/Adverse Reactions: aspirin [Aspirin] Allergy (Severe, Verified 03/06/20 17:48) ? apples Allergy (Severe, Uncoded 03/06/20 17:48) Generalized Itching Past Medical History - Past Medical History Cardiac Medical History: Denies: Hx Coronary Artery Disease, Hx Heart Attack, Hx Hypertension Pulmonary Medical History: Denies: Hx Asthma, Hx Bronchitis, Hx COPD, Hx Pneumonia Neurological Medical History: Reports: Hx Migraine. Denies: Hx Cerebrovascular Accident, Hx Seizures Renal/ Medical History: Denies: Hx Peritoneal Dialysis GI Medical History: Reports: Hx Gastroesophageal Reflux Disease Musculoskeltal Medical History: Denies Hx Arthritis Psychiatric Medical History: Reports: Hx Anxiety, Hx Depression Past Surgical History: Reports: Hx Cardiac Catheterization, Hx Cardiac Surgery - Accessory pathway ablation, Hx Cholecystectomy, Hx Tubal Ligation - Immunizations Immunizations up to date: Yes Hx Diphtheria, Pertussis, Tetanus Vaccination: Yes Physical Exam - Vital signs Vitals: Temp Pulse Resp BP Pulse Ox 98.1 F 91 20 102/58 L 98 03/06/20 17:34 03/06/20 17:34 03/06/20 17:34 03/06/20 17:34 03/06/20 17:34 - Cardiovascular Rhythm: Regular Heart sounds: S1 appreciated, S2 appreciated Murmur: No Course - Vital Signs Vital signs: Temp Pulse Resp BP Pulse Ox 98.1 F 91 20 102/58 L 98 03/06/20 17:34 03/06/20 17:34 03/06/20 17:34 03/06/20 17:34 03/06/20 17:34
--- NOTE | 2020-03-06 18:32 | RADIOLOGY REPORT (SQ) ---
EXAM DESCRIPTION: CHEST SINGLE VIEW IMAGES COMPLETED DATE/TIME: 03/06/2020 6:19 pm REASON FOR STUDY: dizzy, fast heart rate COMPARISON: 06/08/2018. EXAM PARAMETERS: NUMBER OF VIEWS: One view. TECHNIQUE: Single frontal radiographic view of the chest acquired. RADIATION DOSE: NA LIMITATIONS: None. FINDINGS: LUNGS AND PLEURA: No opacities, masses or pneumothorax. No pleural effusion. MEDIASTINUM AND HILAR STRUCTURES: No masses. Contour normal. HEART AND VASCULAR STRUCTURES: Heart normal in size. Normal vasculature. BONES: No acute findings. HARDWARE: None in the chest. OTHER: No other significant finding. IMPRESSION: NO ACUTE RADIOGRAPHIC FINDING IN THE CHEST. TECHNICAL DOCUMENTATION: JOB ID: [id number] 2010 [employer]- All Rights Reserved Reading location - IP/workstation name: [email or web address]
[2020-03-06 18:51] LABS: ABSOLUTE EOSINOPHILS # (AUTO) 0.1 10^3/uL (0.0-0.6); ABSOLUTE LYMPHOCYTES (AUTO) 2.6 10^3/uL (0.5-4.7); ABSOLUTE MONOCYTES (AUTO) 0.6 10^3/uL (0.1-1.4); ABSOLUTE NEUT (AUTO) 4.8 10^3/uL (1.7-8.2); BASOPHILS % (AUTO) 0.4 % (0-2); EOSINOPHILS % (AUTO) 1.5 % (0-6); HEMATOCRIT 35.9 % (36.0-47.0); HEMOGLOBIN 12.4 g/dL (12.0-15.5); LYMPHOCYTES % (AUTO) 32.2 % (13-45); MEAN CORPUSCULAR HEMOGLOBIN 31.9 pg (27.0-33.4); MEAN CORPUSCULAR HGB CONC 34.6 g/dL (32.0-36.0); MEAN CORPUSCULAR VOLUME 92 fl (80-97); MONOCYTES % (AUTO) 6.9 % (3-13); PLATELET COUNT 343 10^3/uL (150-450); RED CELL DISTRIBUTION WIDTH 13.4 % (11.5-14.0); TOTAL CELLS COUNTED % (AUTO) 100 %; WHITE BLOOD COUNT 8.1 10^3/uL (4.0-10.5)
[2020-03-06 19:07] LABS: ALBUMIN 4.3 g/dL (3.5-5.0); ALKALINE PHOSPHATASE 55 U/L (38-126); ANION GAP 12 (5-19); ASPARTATE AMINO TRANSFERASE 28 U/L (14-36); BILIRUBIN,DIRECT 0.2 mg/dL (0.0-0.4); BILIRUBIN,TOTAL 0.9 mg/dL (0.2-1.3); BLOOD UREA NITROGEN 10 mg/dL (7-20); CALCIUM 9.4 mg/dL (8.4-10.2); CARBON DIOXIDE 24 mmol/L (22-30); CHLORIDE 104 mmol/L (98-107); GLUCOSE 91 mg/dL (75-110); POTASSIUM 4.2 mmol/L (3.6-5.0); TOTAL PROTEIN 7.5 g/dL (6.3-8.2)
--- NOTE | 2020-03-06 20:53 | EKG REPORT ---
SEVERITY:- NORMAL ECG - SINUS RHYTHM : Confirmed by: Danay Garcia MD 06-Mar-2020 20:52:32
--- NOTE | 2020-03-06 21:05 | ER Document Report ---
ED Medical Screen (RME) - General Chief Complaint: Palpitations Stated Complaint: CHEST PAIN Time Seen by Provider: 03/06/20 17:49 Mode of Arrival: Ambulatory Information source: Patient Notes: 03/06/20 17:49 - Nursing Note by JANIS LEAL Acct Num: [id number] : 1980 Patient Age: 39 Pt assisted to triage room via wheelchair. Pt reports heart palpations since yesterday. Pt reports chest pain and SOB. Pt sitting up to chair, Resp even & unlabored. Pt able to speak in complete sentences. MAXIMO Lester present for triage. 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 She was working today and felt like she had fast heart rate like she had atrial fibrillation. She said her heart rate went from 150 down to 90. She says she had chest pain symptoms beginning at age 13 and this was not diagnosed until she was 18 years old. Patient reports she has no dysuria no diarrhea no constipation denies any drug use. She says she has a cousin with some similar symptoms. Patient reports her Fitbit was the machine that identified her rapid heart rate. Patient denies any thyroid problems any alcohol abuse or drug abuse or drug withdrawal or alcohol withdrawal. She denies any coronavirus symptoms or any fever chills cough cold diarrhea skin rash. She "has not seen a windows architect because they cost too much." TRAVEL OUTSIDE OF THE [place] IN LAST 30 DAYS: No - HPI Onset: This afternoon Onset/Duration: Sudden, Better Quality of pain: Achy Severity: Mild Pain Level: 1 Associated Symptoms: Dizzy/lightheaded Exacerbated by: Movement Relieved by: Denies Similar symptoms previously: Yes Recently seen / treated by doctor: No - Related Data Allergies/Adverse Reactions: aspirin [Aspirin] Allergy (Severe, Verified 03/06/20 17:48) ? apples Allergy (Severe, Uncoded 03/06/20 17:48) Generalized Itching Past Medical History - General Information source: Patient - Social History Cigarette use (# per day): No - Stop smoking 3 years ago cigarettes but does smoke CBD Chew tobacco use (# tins/day): No Frequency of alcohol use: None Drug Abuse: Marijuana Lives with: Family - Past Medical History Cardiac Medical History: Denies: Hx Coronary Artery Disease, Hx Heart Attack, Hx Hypertension Pulmonary Medical History: Denies: Hx Asthma, Hx Bronchitis, Hx COPD, Hx Pneumonia Neurological Medical History: Reports: Hx Migraine. Denies: Hx Cerebrovascular Accident, Hx Seizures Renal/ Medical History: Denies: Hx Peritoneal Dialysis GI Medical History: Reports: Hx Gastroesophageal Reflux Disease Musculoskeltal Medical History: Denies Hx Arthritis Psychiatric Medical History: Reports: Hx Anxiety, Hx Depression Past Surgical History: Reports: Hx Cardiac Catheterization, Hx Cardiac Surgery - Accessory pathway ablation, Hx Cholecystectomy, Hx Tubal Ligation - Immunizations Immunizations up to date: Yes Hx Diphtheria, Pertussis, Tetanus Vaccination: Yes Review of Systems - Review of Systems Constitutional: No symptoms reported EENT: No symptoms reported Cardiovascular: See HPI, Heart racing Respiratory: No symptoms reported Gastrointestinal: No symptoms reported Genitourinary: No symptoms reported Female Genitourinary: No symptoms reported Musculoskeletal: No symptoms reported Skin: No symptoms reported Hematologic/Lymphatic: No symptoms reported Neurological/Psychological: No symptoms reported Physical Exam - Vital signs Vitals: Temp Pulse Resp BP Pulse Ox 98.1 F 91 20 102/58 L 98 03/06/20 17:34 03/06/20 17:34 03/06/20 17:34 03/06/20 17:34 03/06/20 17:34 Interpretation: Normal, Hypotensive - HEENT Head: Normocephalic, Atraumatic Eyes: Normal Pupils: PERRL Mouth/Lips: Normal Mucous membranes: Normal Pharynx: Normal Neck: Normal - Respiratory Respiratory status: No respiratory distress Chest status: Nontender Breath sounds: Normal Chest palpation: Normal - Cardiovascular Rhythm: Regular Heart sounds: Normal auscultation Murmur: No - Abdominal Inspection: Normal Distension: No distension Bowel sounds: Normal Tenderness: Nontender Organomegaly: No organomegaly - Rectal Hemorrhoids: Other - deferred - Genitourinary [place] exam: Other - deferred - Back Back: Normal - Extremities General upper extremity: Normal inspection General lower extremity: Normal inspection - Neurological Neuro grossly intact: Yes Cognition: Normal Orientation: AAOx4 [place] Coma Scale Eye Opening: Spontaneous [place] Coma Scale Verbal: Oriented [place] Coma Scale Motor: Obeys Commands [place] Coma Scale Total: 15 Speech: Normal Motor strength normal: LUE, RUE, LLE, RLE Sensory: Normal - Psychological Associated symptoms: Anxious - Skin Skin Temperature: Warm Skin Moisture: Dry Course - Vital Signs Vital signs: Temp Pulse Resp BP Pulse Ox 98.1 F 91 20 102/58 L 98 03/06/20 17:34 03/06/20 17:34 03/06/20 17:34 03/06/20 17:34 03/06/20 17:34 - Laboratory Result Diagrams: 03/06/20 18:35 03/06/20 18:35 Laboratory results interpreted by me: 03/06/20 18:35 Hct 35.9 L - Diagnostic Test Radiology reviewed: Reports reviewed Critical Care Note - Critical Care Note Comments: I discussed findings of labs and EKG and chest x-ray with patient. She appeared to understand. Doctor's Discharge - Discharge Clinical Impression: Palpitations with regular cardiac rhythm, Anxiety about health Disposition: HOME, SELF-CARE Additional Instructions: Follow-up with Dr. Castañeda windows architect return to ER as needed take medicines as directed encourage fluids avoid smoking or any alcohol or tea or caffeine or chocolate with theobromine Prescriptions: Propranolol HCl [Inderal 10 mg Tablet] 10 mg PO HSP PRN #10 tab PRN Reason: Forms: Return to Work
[2020-03-06] MEDS ORDERED: PROPRANOLOL HCL 20 MG TABLET PO ONE (21:34)
[2020-03-06] MEDS ORDERED: LORAZEPAM 0.5 MG TABLET PO ONE (21:35)
[2020-03-06 22:17] VITALS: BP 103/51
== END 2020-03-06 22:17 | disposition home or self-care (01) ==
LOC: ER 17:24
DX: R00.2 Palpitations (principal); F41.8 Other specified anxiety disorders; R07.9 Chest pain, unspecified; R06.02 Shortness of breath; R42 Dizziness and giddiness; Z88.6 Allergy status to analgesic agent; Z90.49 Acquired absence of other specified parts of digestive tract; Z98.51 Tubal ligation status
CPT/HCPCS: 93005; 99285; 36415; 83735; 84443; 84703; 85025; 80053; 84484; 71045; 93010; J3490

== ENCOUNTER 2020-06-13 10:19 | Emergency (ER) | payer SELFPAY ==
[2020-06-13 13:37] LABS: APPEARANCE,URINE CLEAR; BILIRUBIN,URINE NEGATIVE (NEGATIVE); COLOR,URINE STRAW; GLUCOSE, URINE NEGATIVE (NEGATIVE); KETONES,URINE NEGATIVE (NEGATIVE); LEUKOCYTE ESTERASE,URINE NEGATIVE (NEGATIVE); NITRITE,URINE NEGATIVE (NEGATIVE); PROTEIN,URINE NEGATIVE (NEGATIVE); URINE SPECIFIC GRAVITY 1.012; UROBILINOGEN,URINE NEGATIVE mg/dL (<2.0)
[2020-06-13] MEDS ORDERED: ALBUTEROL SULFATE 0.083% NEB 2.5 MG/3 ML AMPUL NEB ONE (13:53)
[2020-06-13] MEDS ORDERED: METHYLPREDNISOLONE INJ 125 MG/2 ML SDV IV ONE (13:54)
--- NOTE | 2020-06-13 13:57 | RADIOLOGY REPORT (SQ) ---
EXAM DESCRIPTION: CHEST SINGLE VIEW IMAGES COMPLETED DATE/TIME: 06/13/2020 1:41 pm REASON FOR STUDY: bed 39 short of breath COMPARISON: 03/06/2020 EXAM PARAMETERS: NUMBER OF VIEWS: One view. TECHNIQUE: Single frontal radiographic view of the chest acquired. RADIATION DOSE: NA LIMITATIONS: None. FINDINGS: LUNGS AND PLEURA: No opacities, masses or pneumothorax. No pleural effusion. MEDIASTINUM AND HILAR STRUCTURES: No masses. Contour normal. HEART AND VASCULAR STRUCTURES: Heart normal in size. Normal vasculature. BONES: No acute findings. HARDWARE: None in the chest. OTHER: No other significant finding. IMPRESSION: 1. NO ACUTE RADIOGRAPHIC FINDING IN THE CHEST. TECHNICAL DOCUMENTATION: JOB ID: [id number] 2010 [employer]- All Rights Reserved Reading location - IP/workstation name: [email or web address]
[2020-06-13 14:14] LABS: ABSOLUTE EOSINOPHILS # (AUTO) 0.2 10^3/uL (0.0-0.6); ABSOLUTE LYMPHOCYTES (AUTO) 2.1 10^3/uL (0.5-4.7); ABSOLUTE MONOCYTES (AUTO) 0.4 10^3/uL (0.1-1.4); ABSOLUTE NEUT (AUTO) 2.9 10^3/uL (1.7-8.2); BASOPHILS % (AUTO) 0.7 % (0-2); EOSINOPHILS % (AUTO) 2.9 % (0-6); HEMATOCRIT 36.2 % (36.0-47.0); HEMOGLOBIN 12.6 g/dL (12.0-15.5); LYMPHOCYTES % (AUTO) 37.3 % (13-45); MEAN CORPUSCULAR HEMOGLOBIN 32.3 pg (27.0-33.4); MEAN CORPUSCULAR HGB CONC 34.7 g/dL (32.0-36.0); MEAN CORPUSCULAR VOLUME 93 fl (80-97); MONOCYTES % (AUTO) 6.4 % (3-13); PLATELET COUNT 309 10^3/uL (150-450); RED BLOOD COUNT 3.88 10^6/uL (3.72-5.28); RED CELL DISTRIBUTION WIDTH 14.1 % (11.5-14.0); SEGMENTED NEUTROPHILS % (AUTO) 52.7 % (42-78); TOTAL CELLS COUNTED % (AUTO) 100 %; WHITE BLOOD COUNT 5.5 10^3/uL (4.0-10.5)
[2020-06-13 14:26] LABS: ALBUMIN 4.4 g/dL (3.5-5.0); ALKALINE PHOSPHATASE 59 U/L (38-126); ANION GAP 9 (5-19); ASPARTATE AMINO TRANSFERASE 29 U/L (14-36); BILIRUBIN,DIRECT 0.1 mg/dL (0.0-0.4); BILIRUBIN,TOTAL 0.5 mg/dL (0.2-1.3); BLOOD UREA NITROGEN 11 mg/dL (7-20); CALCIUM 9.8 mg/dL (8.4-10.2); CARBON DIOXIDE 25 mmol/L (22-30); CHLORIDE 106 mmol/L (98-107); CREATINE KINASE 59 U/L (30-135); GLUCOSE 86 mg/dL (75-110); POTASSIUM 4.5 mmol/L (3.6-5.0); TOTAL PROTEIN 7.8 g/dL (6.3-8.2)
[2020-06-13 14:37] LABS: CREATINE KINASE MB 1.13 ng/mL (<4.55); TROPONIN I < 0.012 ng/mL
[2020-06-13] MEDS ORDERED: ONDANSETRON 4 MG TAB.RAPDIS PO ONE (15:13)
--- NOTE | 2020-06-13 15:13 | ER Document Report ---
ED Respiratory Problem - General Chief Complaint: Shortness Of Breath Stated Complaint: SHORT OF BREATH,COUGH,VOMITING Time Seen by Provider: 06/13/20 13:24 Primary Care Provider: [facility] [Provider Group] - Follow up as needed Mode of Arrival: Ambulatory Information source: Patient TRAVEL OUTSIDE OF THE [place] IN LAST 30 DAYS: No - HPI Notes: 39-year-old female presents to ED for evaluation of Covid-like symptoms starting on 06/11. Patient reports that she has had some nausea, vomiting, coughing and sneezing. Also reports she feels like her heart is beating faster. Patient reports she threw up this morning. Patient notes increased stress levels. She has a grandchild. She is concerned that she may expose them. Patient denies any increased shortness of breath. She reports that she does have pro ductive sputum. She denies any abdominal pain, changes in bowel or bladder habits, fever, dysuria, or hematuria. Patient denies flank pain. Patient reports that she has not been checking her temperature regularly at home. She denies recent travel. - Related Data Allergies/Adverse Reactions: aspirin [Aspirin] Allergy (Severe, Verified 06/13/20 11:40) ? Past Medical History - Social History Smoking Status: Former Smoker Drug Abuse: Marijuana Family History: Reviewed & Not Pertinent - Past Medical History Cardiac Medical History: Denies: Hx Coronary Artery Disease, Hx Heart Attack, Hx Hypertension Pulmonary Medical History: Denies: Hx Asthma, Hx Bronchitis, Hx COPD, Hx Pneumonia Neurological Medical History: Reports: Hx Migraine. Denies: Hx Cerebrovascular Accident, Hx Seizures Renal/ Medical History: Denies: Hx Peritoneal Dialysis GI Medical History: Reports: Hx Gastroesophageal Reflux Disease Musculoskeletal Medical History: Denies Hx Arthritis Psychiatric Medical History: Reports: Hx Anxiety, Hx Depression Past Surgical History: Reports: Hx Cardiac Catheterization, Hx Cardiac Surgery - Accessory pathway ablation, Hx Cholecystectomy, Hx Tubal Ligation - Immunizations Immunizations up to date: Yes Hx Diphtheria, Pertussis, Tetanus Vaccination: Yes Review of Systems - Review of Systems Notes: Constitutional: Negative for fever. HENT: + for sore throat. Eyes: Negative for visual changes. Cardiovascular: Negative for chest pain. Respiratory: Negative for shortness of breath. Gastrointestinal: Negative for abdominal pain, vomiting or diarrhea. Genitourinary: Negative for dysuria. Musculoskeletal: Negative for back pain. Skin: Negative for rash. Neurological: Negative for headaches, weakness or numbness. 10 point ROS negative except as marked above and in HPI. Physical Exam - Vital signs Vitals: Temp Pulse Resp BP Pulse Ox 98.1 F 75 20 128/79 H 100 06/13/20 10:27 06/13/20 10:27 06/13/20 10:27 06/13/20 10:27 06/13/20 10:27 General: No acute distress. Alert and oriented x3. Sitting comfortably in a stretcher. Skin: No jaundice, pallor, petechiae, or rashes. Warm and dry. HEENT: Normocephalic, atraumatic. Pupils are equal round reactive to light and accommodation. Extraocular movements are intact. TMs without erythema + bulging. Canals are clear. Nares patent with discharge. Teeth in good condition. Pharynx without erythema, edema, or exudates. Mucous membranes moist. No tonsillar enlargement. Uvula is midline. Airway is patent. Neck: Supple with no lymphadenopathy. Full range of motion. Heart: Regular rate and rhythm. S1,S2. No murmurs, rubs, or gallops. Lungs: Clear to auscultation bilaterally. No wheezes, rhonchi, rales. Equal chest expansion. No retractions. Abdomen: Soft, nontender to palpation, nondistended. Positive bowel sounds in all 4 quadrants. No masses. No CVA tenderness bilaterally. Back: No midline spinal TTP. No paraspinous muscular TTP. Neuro: GCS 15. Moving all extremities without discomfort. Psych: Mood and affect appropriate. Course - Re-evaluation Re-evalutation: 06/13/20 18:30 39-year-old female presents to ED for evaluation of Covid-like symptoms starting on 06/11. Patient reports that she has increased nasal congestion, ear pain, rhinorrhea. Notes some pounding discomfort with her heard however denies pain. Was evaluated with labs and imaging. Chest x-ray is nonacute. Blood work does not show evidence of leukocytosis or electrolyte abnormalities. Results were discussed with the patient. Patient was formed of to remain under quarantine pr ecautions until her Covid testing results are obtained. Patient is advised to drink plenty of fluids. She is placed on symptomatic management. Patient was instructed to use albuterol medications, medics, and steroids. Patient is advised to return if she develops any new or worsening symptoms. She verbalized understanding's of these indications and is agreeable to this plan of care. - Vital Signs Vital signs: Temp Pulse Resp BP Pulse Ox 98.2 F 87 17 128/67 H 100 06/13/20 15:30 06/13/20 15:30 06/13/20 15:30 06/13/20 15:30 06/13/20 15:30 - Laboratory Result Diagrams: 06/13/20 13:42 06/13/20 13:42 Laboratory results interpreted by me: 06/13/20 13:42 RDW 14.1 H - Diagnostic Test Radiology reviewed: Image reviewed Radiology results interpreted by me: 06/13/20 18:28 CXR not acute. Discharge - Discharge Clinical Impression: Person under investigation for COVID-19, Nausea Condition: Stable Disposition: HOME, SELF-CARE Additional Instructions: Please remain at home under quarantine. Follow up with PCP. Prescriptions: Prednisone [Deltasone 20 mg Tablet] 2 tab PO DAILY 5 Days #10 tablet Albuterol Sulfate [Proair HFA Inhalation Aerosol 8.5 gm MDI] 2 puff IH Q4H PRN #1 mdi PRN Reason: Ondansetron [Zofran Odt 4 mg Tablet] 1 - 2 tab PO Q4H PRN #15 tab.rapdis PRN Reason: For Nausea/Vomiting Forms: Return to Work Referrals: [facility] [Provider Group] - Follow up as needed
[2020-06-13 15:32] VITALS: BP 128/67
--- NOTE | 2020-06-13 16:39 | EKG REPORT ---
SEVERITY:- NORMAL ECG - SINUS RHYTHM : Confirmed by: Nicolette Modi 13-Jun-2020 16:39:10
== END 2020-06-13 15:30 | disposition home or self-care (01) ==
LOC: ER 10:19
DX: R11.2 Nausea with vomiting, unspecified (principal); R06.02 Shortness of breath; R05 Cough; R06.7 Sneezing; R09.81 Nasal congestion; Z20.828 Contact with and (suspected) exposure to other viral communicable diseases; Z87.891 Personal history of nicotine dependence; Z88.8 Allergy status to other drugs, medicaments and biological substances
CPT/HCPCS: 93005; 94640; 99285; 96374; 36415; 87040; 82553; 82550; 85025; 87635; 87077; 80053; 81001; 84484; 87150 ×26; 71045; 93010; S0119; J2930; J7613; C9803; 87186